=== PATIENT | female | born 1990 | race Caucasian/White ===

== ENCOUNTER → 2021-11-29 | Outpatient (CLI) | payer BC ==
[~2021-11-29] MED LIST: ALDACTONE 25MG25 M1 PO; GLUCOPHAGE500 MG/TAB; KLONOPIN 0.5MG0.5 MG PO; LAMICTAL200 MG PO; NORCO 325 MG-51 TAB PO; PRILOSEC 20MG20 MG PO
== END ==
LOC: COL.RAD 07:14
DX: K85.90 Acute pancreatitis without necrosis or infection, unspecified (principal); K29.80 Duodenitis without bleeding; K59.00 Constipation, unspecified
CPT/HCPCS: Q9967